=== PATIENT | female | born 1980 | race Caucasian/White ===

== ENCOUNTER 2021-04-30 18:50 | Inpatient (IN) ==
[2021-04-30] MEDS ORDERED: LABETALOL HCL IV 5 MG/ML 20ML IV STA ×3 (19:14→21:54)
--- NOTE | 2021-04-30 19:19 | Emergency Department Note ---
Impression & Plan Hypertensive urgency, Right-sided headache, Elevated troponin, Uncontrolled hypertension ED Provider Note NAME: ERIS PENDLETON AGE: 41 SEX: F : 1980 ARRIVES VIA: Walk-In INFORMANT: [Patient] ED PROVIDER(S): [Santiago Cheung MD] CHIEF COMPLAINT: Headache HISTORY OF PRESENT ILLNESS: The patient is a 41-year-old female who states that she has no significant past medical history. She has not been to her doctor in years. The patient states that for 5 days, she has had a right-sided headache and a headache behind her right eye. The pain has escalated in the last 12 to 24 hours and is now an 8/10. She has tried ibuprofen with minimal relief. No visual issues, no one- sided weakness. No fever, chills, cough or congestion. No vomiting. She has not suffered trauma. Patient states that her right posterior neck feels a bit stiff but mostly, she just has the right-sided headache. REVIEW OF SYSTEMS: See HPI for pertinent positives and negatives. A total of ten systems were reviewed and were otherwise negative. PMHx/PSHx: See Below SOCIAL HISTORY: See Below. PHYSICAL EXAM: GENERAL: Patient is in no acute distress. HEENT: No acute trauma, normocephalic atraumatic, mucous membranes moist, no nasal congestion, no scleral icterus. NECK: No stridor, no adenopathy, no meningismus, trachea is midline. Posterior neck muscles are a bit sore to palpate especially where they insert onto the scalp. LUNGS: Clear to auscultation bilaterally, no wheeze, no rhonchi, breath sounds equal. HEART: Mildly tachycardic, regular rhythm, subtle systolic murmur. ABDOMEN: Soft, nontender, bowel sounds positive, no hernias, no peritonitis. EXTREMITIES: No cyanosis or edema, full range of motion of all the joints without pain or difficulty, no signs for acute trauma. NEUROLOGIC: Oriented x 3, no acute motor or sensory deficits, no focal weakness. SKIN: No rash, no jaundice, no diaphoresis. DIFFERENTIAL DIAGNOSIS: Hypertensive urgency/emergency, intracranial bleeding, carotid dissection, aneurysm, renal failure, electrolyte imbalance, UTI, meningitis, sinusitis, intracranial mass, among others. EMERGENCY DEPARTMENT COURSE/PROCEDURES: ECG: Indication was tachycardia. The ECG shows a sinus tachycardia with PACs. The rate is 101. There is no ST elevation, no PVCs. The QTc is 482. Continuous Cardiac Monitoring: An order was placed for continuous cardiac monitoring. The monitor shows a rate of 789 with normal sinus rhythm. Critical Care Note: I have personally spent 52 minutes of critical care time in the direct management of this patient. This includes bedside care, interpretation of diagnostic studies, and testing, discussion with consultants, patient, and family members, and other required patient management activities. This 52 minutes is in excess of all separately billable procedures. MEDICAL DECISION MAKING: There is no leukocytosis or concerning anemia. There is a normal platelet count. Potassium is a bit low but not in need of emergent correction. No renal failure. No concerning liver enzyme elevation. The patient appeared to be in a euthyroid state. testing returned negative. ECG shows a sinus tachycardia with PACs, no obvious ST elevation. Cardiac enzyme testing x1 is slightly elevated concerning for cardiac injury or strain. Urinalysis did not show infection. Covid testing returned negative. Chest x-ray did not show mediastinal widening, pneumonia or pneumothorax. Brain CT and CT angio of the head and neck are pending. On exam, there was no meningismus, the patient did not have any focal neurologic findings. She was mentating well. No fever. Patient presents with a headache. Her blood pressure was quite high and actually in the danger level. She was aggressively managed. The patient was given IV labetalol, 3 doses were given IV. She was given oral lisinopril. The patient's blood pressure is better than when she first arrived. She seems to be resting comfortably. I suspect the patient's complaints are secondary to her very high blood pressure. She is going to be admitted to the hospital for further work-up and for continued blood pressure control. I spoke with the patient and case management. The on-call hospitalist was consulted. Past Med/Surg History Medical History Odontalgia Social History Smoking Status: Never smoker Feels Safe at Home: Yes Allergies Allergies Allergy/AdvReac Type Severity Reaction Status Date / Time Sulfa (Sulfonamide Allergy Severe RASH Verified 04/30/21 20:50 Antibiotics) Home Meds Home Medications Medication Instructions Recorded Confirmed ibuprofen 200 mg tablet 800 mg PO Q6H PRN 04/30/21 04/30/21 Results & Data (ED) Vital Signs Vital Signs - 24 hr 04/30/21 18:51 04/30/21 18:53 04/30/21 19:14 Temperature 36.8 C Temperature Source Oral Pulse Rate 119 H 78 Pulse Rate [Left Radial] 101 H Pulse Rhythm Regular Pulse Rhythm [Left Radial] Regular Respiratory Rate 20 20 20 Respiratory Effort / Characteristics Non-Labored Non-Labored Spontaneous Respiratory Depth Normal Normal Respiratory Pattern Regular Blood Pressure 242/132 H Blood Pressure [Left Arm] 203/136 H Blood Pressure Mean 168 Blood Pressure Mean [Left Arm] 158 Blood Pressure Position [Left Arm] Lying Pulse Oximetry 98 99 97 Oxygen Delivery Method Room Air Room Air Room Air Sepsis Recent Fever Within 48 Hours No Sepsis New/Unexplained Change in Mental Status No Sepsis Action Taken by Nursing No Action Required 04/30/21 20:51 04/30/21 22:00 Temperature Temperature Source Pulse Rate Pulse Rate [Left Radial] 83 78 Pulse Rhythm Pulse Rhythm [Left Radial] Regular Regular Respiratory Rate 20 90 H Respiratory Effort / Characteristics Non-Labored Non-Labored Respiratory Depth Normal Normal Respiratory Pattern Blood Pressure Blood Pressure [Left Arm] 208/113 H 205/105 H Blood Pressure Mean Blood Pressure Mean [Left Arm] 144 138 Blood Pressure Position [Left Arm] Lying Lying Pulse Oximetry 98 99 Oxygen Delivery Method Room Air Room Air Sepsis Recent Fever Within 48 Hours Sepsis New/Unexplained Change in Mental Status Sepsis Action Taken by Usp Medications Current Medication List: was personally reviewed by me Laboratory Data Attestation: I reviewed the patient's lab results. Result diagrams: 04/30/21 19:40 04/30/21 19:40 Lab Results 04/30/21 04/30/21 04/30/21 Range/Units 19:33 19:40 19:40 WBC 9.87 (4.8-10.8) K/uL RBC 4.94 (4.2-5.4) M/uL Hgb 13.6 (12.0-16.0) g/dL Hct 41.3 (37-47) % MCV 83.6 (80-100) fL MCH 27.5 (25-34) pg MCHC 32.9 (32-36) g/dL RDW Std Deviation 43.3 (36.4-46.3) fL RDW Coeff of Moraima 14.2 (11.5-14.5) % Plt Count 326 (130-400) K/uL MPV 9.8 (7.4-10.4) fL Immature Gran % (Auto) 0.1 % Neut % (Auto) 69.8 % Lymph % (Auto) 22.9 % [place] % (Auto) 6.5 % Eos % (Auto) 0.5 % Baso % (Auto) 0.2 % Neut # (Auto) 6.89 H (1.4-6.5) K/uL Lymph # (Auto) 2.26 (1.2-3.4) K/uL [place] # (Auto) 0.64 H (0.11-0.59) K/uL Eos # (Auto) 0.05 (0-0.5) K/uL Baso # (Auto) 0.02 (0-0.2) K/uL Immature Gran # (Auto) 0.01 (0.00-0.02) K/uL Sodium 140 (136-145) mmol/L Potassium 3.2 L (3.5-5.1) mmol/L Chloride 104 (98-107) mmol/L Carbon Dioxide 28 (21-32) mmol/L Anion Gap 8 (3-11) BUN 9 (6-23) mg/dl Creatinine 0.76 (0.6-1.2) mg/dl Est Cr Clr Drug Dosing 97.3 ml/min Est GFR ( Amer) 112.1 ml/min Est GFR (Non-Af Amer) 96.8 ml/min BUN/Creatinine Ratio 11.8 (10-20) Glucose 111 H (70-99(Fasting)) mg/dl Calcium 9.4 (8.5-10.1) mg/dl Magnesium 2.1 (1.7-2.4) mg/dl Total Bilirubin 0.4 (0.2-1.0) mg/dl AST 15 (13-39) U/L ALT 16 (7-52) U/L Alkaline Phosphatase 88 (34-104) U/L Troponin I 0.09 H* (0-0.04) ng/ml Total Protein 7.3 (6.0-8.3) gm/dl Albumin 4.4 (3.4-5.0) gm/dl Globulin 2.9 (2.5-4.0) gm/dl Albumin/Globulin Ratio 1.5 (0.9-2) TSH (0.300-4.500) uIu/ml HCG, Qual (Negative) Urine Color Urine Appearance (Clear) Urine pH (4.5-7.5) Ur Specific [place] (1.000-1.030) Urine Protein (Negative) Urine Glucose (UA) (Negative) Urine Ketones (Negative) Urine Blood (Negative) Urine Nitrite (Negative) Urine Bilirubin (Negative) Urine Urobilinogen (Negative) Ur Leukocyte Esterase (Negative) SARS-CoV-2, RNA, NAAT NEGATIVE (NEGATIVE) 04/30/21 04/30/21 04/30/21 Range/Units 19:40 19:40 19:40 WBC (4.8-10.8) K/uL RBC (4.2-5.4) M/uL Hgb (12.0-16.0) g/dL Hct (37-47) % MCV (80-100) fL MCH (25-34) pg MCHC (32-36) g/dL RDW Std Deviation (36.4-46.3) fL RDW Coeff of Moraima (11.5-14.5) % Plt Count (130-400) K/uL MPV (7.4-10.4) fL Immature Gran % (Auto) % Neut % (Auto) % Lymph % (Auto) % [place] % (Auto) % Eos % (Auto) % Baso % (Auto) % Neut # (Auto) (1.4-6.5) K/uL Lymph # (Auto) (1.2-3.4) K/uL [place] # (Auto) (0.11-0.59) K/uL Eos # (Auto) (0-0.5) K/uL Baso # (Auto) (0-0.2) K/uL Immature Gran # (Auto) (0.00-0.02) K/uL Sodium (136-145) mmol/L Potassium (3.5-5.1) mmol/L Chloride (98-107) mmol/L Carbon Dioxide (21-32) mmol/L Anion Gap (3-11) BUN (6-23) mg/dl Creatinine (0.6-1.2) mg/dl Est Cr Clr Drug Dosing ml/min Est GFR ( Amer) ml/min Est GFR (Non-Af Amer) ml/min BUN/Creatinine Ratio (10-20) Glucose (70-99(Fasting)) mg/dl Calcium (8.5-10.1) mg/dl Magnesium (1.7-2.4) mg/dl Total Bilirubin (0.2-1.0) mg/dl AST (13-39) U/L ALT (7-52) U/L Alkaline Phosphatase (34-104) U/L Troponin I (0-0.04) ng/ml Total Protein (6.0-8.3) gm/dl Albumin (3.4-5.0) gm/dl Globulin (2.5-4.0) gm/dl Albumin/Globulin Ratio (0.9-2) TSH 1.398 (0.300-4.500) uIu/ml HCG, Qual Negative (Negative) Urine Color Yellow Urine Appearance Clear (Clear) Urine pH 6.5 (4.5-7.5) Ur Specific [place] 1.012 (1.000-1.030) Urine Protein Negative (Negative) Urine Glucose (UA) Negative (Negative) Urine Ketones Negative (Negative) Urine Blood Negative (Negative) Urine Nitrite Negative (Negative) Urine Bilirubin Negative (Negative) Urine Urobilinogen Negative (Negative) Ur Leukocyte Esterase Negative (Negative) SARS-CoV-2, RNA, NAAT (NEGATIVE) Administered Medications Discontinued Medications Ioversol (Optiray 320 125ml) 120 ml IV ONCE ONE Stop: 04/30/21 20:37 Last Admin: 04/30/21 20:39 Dose: 120 ml Documented by: [id number] Labetalol HCl (Labetalol Hcl Iv 5 Mg/Ml 20ml) 10 mg IV NOW STA Stop: 04/30/21 19:15 Last Admin: 04/30/21 19:37 Dose: 10 mg Documented by: [id number] Cosigned by: [id number] Labetalol HCl (Labetalol Hcl Iv 5 Mg/Ml 20ml) 10 mg IV NOW STA Stop: 04/30/21 20:23 Last Admin: 04/30/21 20:26 Dose: 10 mg Documented by: [id number] Cosigned by: [id number] Labetalol HCl (Labetalol Hcl Iv 5 Mg/Ml 20ml) 10 mg IV NOW STA Stop: 04/30/21 21:55 Last Admin: 04/30/21 22:02 Dose: 10 mg Documented by: [id number] Cosigned by: [id number] Lisinopril (Lisinopril 5 Mg Tab) 10 mg PO NOW ONE Stop: 04/30/21 21:18 Last Admin: 04/30/21 21:52 Dose: 10 mg Documented by: [id number] Imaging Data Radiologist's Impression: Chest X-Ray 04/30/21 19:14 XR chest 1V portable CLINICAL HISTORY: weakness. Evaluate cardiopulmonary status COMPARISON STUDY: 12/09/2010 TECHNIQUE: 1 view of the chest FINDINGS: Single frontal view of the chest demonstrates the cardiomediastinal silhouette to be within normal limits. The lungs are clear of alveolar opacities. There is no evidence for pleural effusion. There is no evidence for vascular congestion. There is no acute osseous pathology. IMPRESSION: 1. No acute cardiopulmonary disease. ACT 112: Negative or not required by law. Electronically signed by: Hipolito Fatima M.D. 04/30/2021 7:[address], CT angio of the brain and neck: Pending. Discharge Plan Visit Data Chief Complaint: Headache Stated Complaint: headache 5 days, stiff neck, lightheaded, ED Provider: Santiago Cheung Discharge Problem: Hypertensive urgency, Right-sided headache, Elevated troponin, Uncontrolled hypertension Patient Disposition: Admitted As Inpatient Condition: Fair Forms Stand Alone Forms: My [facility] Prescriptions Prescriptions: No Action ibuprofen 200 mg Tablet 800 mg PO Q6H PRN (Reason: Pain) RF: 0 Referrals Referrals: Jarad Butcher MD [Outside Practitioners] -
[2021-04-30 19:48] LABS: Basophils # (auto) 0.02 K/uL (0-0.2); Basophils % (auto) 0.2 %; Eosinophils # (auto) 0.05 K/uL (0-0.5); Eosinophils % (auto) 0.5 %; Hematocrit (blood only) 41.3 % (37-47); Hemoglobin 13.6 g/dL (12.0-16.0); Immature Granulocytes # (auto) 0.01 K/uL (0.00-0.02); Immature Granulocytes % (auto) 0.1 %; Lymphocytes # (auto) 2.26 K/uL (1.2-3.4); Lymphocytes % (auto) 22.9 %; Mean Corpuscular Hemoglobin 27.5 pg (25-34); Mean Corpuscular Hgb Conc 32.9 g/dL (32-36); Mean Corpuscular Volume 83.6 fL (80-100); Mean Platelet Volume 9.8 fL (7.4-10.4); Monocytes # (auto) 0.64 K/uL (0.11-0.59); Monocytes % (auto) 6.5 %; Neutrophils # (auto) 6.89 K/uL (1.4-6.5); Neutrophils % (auto) 69.8 %; Platelet Count 326 K/uL (130-400); RDW Coefficient of Variation 14.2 % (11.5-14.5); RDW Standard Deviation 43.3 fL (36.4-46.3); Red Blood Count 4.94 M/uL (4.2-5.4); White Blood Count 9.87 K/uL (4.8-10.8)
[2021-04-30 19:50] LABS: Appearance Urine Clear (Clear); Bilirubin Urine Negative (Negative); Blood Urine Negative (Negative); Color Urine Yellow; Glucose Urine UA Negative (Negative); Ketones Urine Negative (Negative); Leukocyte Esterase Urine Negative (Negative); Nitrite Urine Negative (Negative); Protein Urine Negative (Negative); Specific Gravity Urine 1.012 (1.000-1.030); Urobilinogen Urine Negative (Negative); pH Urine 6.5 (4.5-7.5)
--- NOTE | 2021-04-30 20:01 | XRay Report ---
XR chest 1V portable CLINICAL HISTORY: weakness. Evaluate cardiopulmonary status COMPARISON STUDY: 12/09/2010 TECHNIQUE: 1 view of the chest FINDINGS: Single frontal view of the chest demonstrates the cardiomediastinal silhouette to be within normal li mits. The lungs are clear of alveolar opacities. There is no evidence for pleural effusion. There is no evidence for vascular congestion. There is no acute osseous pathology. IMPRESSION: 1. No acute cardiopulmonary disease. ACT 112: Negative or not required by law. Electronically signed by: Hipolito Fatima M.D. 04/30/2021 7:58 PM
[2021-04-30 20:16] LABS: Albumin Globulin Ratio 1.5 (0.9-2); Albumin Level 4.4 gm/dl (3.4-5.0); BUN Creatinine Ratio 11.8 (10-20); Bilirubin,Total 0.4 mg/dl (0.2-1.0); Calcium 9.4 mg/dl (8.5-10.1); Creatinine Clr Calc Pharmacy 97.3 ml/min; Est GFR (African American) 112.1 ml/min; Est GFR (Non-African American) 96.8 ml/min; Globulin 2.9 gm/dl (2.5-4.0); Magnesium 2.1 mg/dl (1.7-2.4); Potassium 3.2 mmol/L (3.5-5.1); Total Protein 7.3 gm/dl (6.0-8.3)
[2021-04-30 20:17] LABS: Pregnancy Test, Serum Negative (Negative)
[2021-04-30 20:20] LABS: Troponin I 0.09 ng/ml (0-0.04)
[2021-04-30] MEDS ORDERED: OPTIRAY 320 125ml IV ONE (20:36)
[2021-04-30] MEDS ORDERED: lisinopril 5 MG TAB PO ONE (21:17)
[2021-04-30] MEDS ORDERED: POTASSIUM CHLORIDE CRTAB 20 MEQ TABCR PO STA (23:01)
--- NOTE | 2021-04-30 23:05 | History & Physical Report ---
Date of Service April 30, 2021 Assessment & Plan (1) Hypertensive crisis: Plan: History of gestational hypertension Troponin elevation secondary to above Hyperglycemia rule out DM Hypokalemia Ongoing tobacco abuse PCU Careful lowering of blood pressure Titrate lisinopril Follow troponin TTE if with further elevation Consider cardiology consult for hypertensive crisis if BP unresponsive Replace potassium Check hemoglobin A1c Nicotine patch as needed DVT prophylaxis per Lovenox subcu Full code Text document was generated using [employer] voice recognition software. It may contain grammatical or spelling errors. Kindly contact undersigned for clarification of any documentation item in question. History of Present Illness Chief Complaint: Headache, high blood pressure Primary Care Provider: NO PCP (Patient previously known as Joid Dillon.) Medical history significant for gestational hypertension, ongoing tobacco abuse 4 days history of achy right-sided headache symptoms without visual abnormalities. Pain more constant the last 2 days. Patient took her blood pressure at home yesterday. SBP noted to be 180s. Patient denies chest pain, S OB. No unusual stress at home. Intermittent relief of headache symptoms with ibuprofen intake. Family advised patient to come to the hospital to get checked out. Highest BP at the ER 242/1 30s. Patient given doses of IV labetalol and lisinopril. SBP currently 200s. 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, no EtOH intake, homemaker Allergies Allergy/AdvReac Type Severity Reaction Status Date / Time Sulfa (Sulfonamide Allergy Severe RASH Verified 04/30/21 20:50 Antibiotics) Home Medications Medication Instructions Recorded Confirmed Type ibuprofen 200 mg tablet 800 mg PO Q6H PRN 04/30/21 04/30/21 History Past Med/Surg History Medical History Odontalgia Social History Smoking Status: Current every day smoker Do You Dip or Chew Tobacco: No; Hx Alcohol Use: No Hx Substance Use: No Preferred Language: [place] Islander Communication Ability: Effective Restaurant Cashier Required: No Beliefs That Will Affect Care: None Current Living Situation: Spouse Other Information That Helps Us Care for You: No Feels Safe at Home: Yes Safety Concerns: Feels Safe At This Time Assistive Devices: None Review of Systems Review of Systems: As per HPI, all 10 systems reviewed, all other ROS negative Physical Exam Physical Exam: GENERAL: Comfortable, pleasant, no respiratory distress SKIN: Normal color, warm HEENT: [place] palpebral conjunctivae, no ptosis, moist buccal mucosa NECK : Supple, no tenderness CHEST : CTA, no tenderness HEART : RRR, no obvious murmurs ABDOMEN: Some distention, nontender EXTREMITIES : No LE swelling/tenderness, no other conspicuous deformities noted NEUROLOGIC : Coherent, no facial asymmetry, no other gross focality Results & Data Results & Data ([facility]) Vital Signs (Past 12 Hours) Vital Signs Temp Pulse Pulse Resp BP BP Pulse Ox 04/30/21 22:00 78 90 H 205/105 H 99 04/30/21 20:51 83 20 208/113 H 98 04/30/21 19:14 78 20 97 04/30/21 18:53 36.8 C 119 H 20 242/132 H 99 04/30/21 18:51 101 H 20 203/136 H 98 Laboratory Results Laboratory Results WBC 9.87 K/uL (4.8-10.8) 04/30/21 19:40 RBC 4.94 M/uL (4.2-5.4) 04/30/21 19:40 Hgb 13.6 g/dL (12.0-16.0) 04/30/21 19:40 Hct 41.3 % (37-47) 04/30/21 19:40 MCV 83.6 fL (80-100) 04/30/21 19:40 MCH 27.5 pg (25-34) 04/30/21 19:40 MCHC 32.9 g/dL (32-36) 04/30/21 19:40 RDW Std Deviation 43.3 fL (36.4-46.3) 04/30/21 19:40 RDW Coeff of Moraima 14.2 % (11.5-14.5) 04/30/21 19:40 Plt Count 326 K/uL (130-400) 04/30/21 19:40 MPV 9.8 fL (7.4-10.4) 04/30/21 19:40 Immature Gran % (Auto) 0.1 % 04/30/21 19:40 Neut % (Auto) 69.8 % 04/30/21 19:40 Lymph % (Auto) 22.9 % 04/30/21 19:40 [place] % (Auto) 6.5 % 04/30/21 19:40 Eos % (Auto) 0.5 % 04/30/21 19:40 Baso % (Auto) 0.2 % 04/30/21 19:40 Neut # (Auto) 6.89 K/uL (1.4-6.5) H 04/30/21 19:40 Lymph # (Auto) 2.26 K/uL (1.2-3.4) 04/30/21 19:40 [place] # (Auto) 0.64 K/uL (0.11-0.59) H 04/30/21 19:40 Eos # (Auto) 0.05 K/uL (0-0.5) 04/30/21 19:40 Baso # (Auto) 0.02 K/uL (0-0.2) 04/30/21 19:40 Immature Gran # (Auto) 0.01 K/uL (0.00-0.02) 04/30/21 19:40 Sodium 140 mmol/L (136-145) 04/30/21 19:40 Potassium 3.2 mmol/L (3.5-5.1) L 04/30/21 19:40 Chloride 104 mmol/L (98-107) 04/30/21 19:40 Carbon Dioxide 28 mmol/L (21-32) 04/30/21 19:40 Anion Gap 8 (3-11) 04/30/21 19:40 BUN 9 mg/dl (6-23) 04/30/21 19:40 Creatinine 0.76 mg/dl (0.6-1.2) 04/30/21 19:40 Est Cr Clr Drug Dosing 97.3 ml/min 04/30/21 19:40 Est GFR ( Amer) 112.1 ml/min 04/30/21 19:40 Est GFR (Non-Af Amer) 96.8 ml/min 04/30/21 19:40 BUN/Creatinine Ratio 11.8 (10-20) 04/30/21 19:40 Glucose 111 mg/dl (70-99(Fasting)) H 04/30/21 19:40 Calcium 9.4 mg/dl (8.5-10.1) 04/30/21 19:40 Magnesium 2.1 mg/dl (1.7-2.4) 04/30/21 19:40 Total Bilirubin 0.4 mg/dl (0.2-1.0) 04/30/21 19:40 AST 15 U/L (13-39) 04/30/21 19:40 ALT 16 U/L (7-52) 04/30/21 19:40 Alkaline Phosphatase 88 U/L (34-104) 04/30/21 19:40 Troponin I 0.09 ng/ml (0-0.04) H* 04/30/21 19:40 Total Protein 7.3 gm/dl (6.0-8.3) 04/30/21 19:40 Albumin 4.4 gm/dl (3.4-5.0) 04/30/21 19:40 Globulin 2.9 gm/dl (2.5-4.0) 04/30/21 19:40 Albumin/Globulin Ratio 1.5 (0.9-2) 04/30/21 19:40 TSH 1.398 uIu/ml (0.300-4.500) 04/30/21 19:40 HCG, Qual Negative (Negative) 04/30/21 19:40 Urine Color Yellow 04/30/21 19:40 Urine Appearance Clear (Clear) 04/30/21 19:40 Urine pH 6.5 (4.5-7.5) 04/30/21 19:40 Ur Specific [place] 1.012 (1.000-1.030) 04/30/21 19:40 Urine Protein Negative (Negative) 04/30/21 19:40 Urine Glucose (UA) Negative (Negative) 04/30/21 19:40 Urine Ketones Negative (Negative) 04/30/21 19:40 Urine Blood Negative (Negative) 04/30/21 19:40 Urine Nitrite Negative (Negative) 04/30/21 19:40 Urine Bilirubin Negative (Negative) 04/30/21 19:40 Urine Urobilinogen Negative (Negative) 04/30/21 19:40 Ur Leukocyte Esterase Negative (Negative) 04/30/21 19:40 SARS-CoV-2, RNA, NAAT NEGATIVE (NEGATIVE) 04/30/21 19:33 Impressions Chest X-Ray 04/30/21 19:14 XR chest 1V portable CLINICAL HISTORY: weakness. Evaluate cardiopulmonary status COMPARISON STUDY: 12/09/2010 TECHNIQUE: 1 view of the chest FINDINGS: Single frontal view of the chest demonstrates the cardiomediastinal silhouette to be within normal limits. The lungs are clear of alveolar opacities. There is no evidence for pleural effusion. There is no evidence for vascular congestion. There is no acute osseous pathology. IMPRESSION: 1. No acute cardiopulmonary disease. ACT 112: Negative or not required by law. Electronically signed by: Hipolito Fatima M.D. 04/30/2021 7:[address] head initial read: No ICH, mass-effect, or edema. No skull fracture. Sinuses and mastoid air cells are clear. 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 Variant ACAanatomywith common ACAtrunk at the A2 level. Patent intracranial circulation. No large vessel occlusion. No aneurysm. No vascular malformation. CT angio neck initial read: No dissection, stenosis, or occlusion. EKG as per my interpretation: Rate 105, sinus tachycardia, normal axis, LAE, no ischemia
[2021-04-30] MEDS ORDERED: traMADol HCL 50 MG TABLET PO PRN (23:29)
[2021-04-30] MEDS ORDERED: traMADol HCL 50 MG TABLET PO STA (23:29)
[2021-05-01] MEDS ORDERED: LACTATED RINGER'S 1,000 ML IV ONE (00:32)
[2021-05-01] MEDS ORDERED: PROMETHAZINE HCL 12.5 MG in SODIUM CHLORIDE 0.9% 50 ML IV PRN (00:32)
[2021-05-01] MEDS ORDERED: traMADol HCL 50 MG TABLET PO PRN (00:32)
[2021-05-01] MEDS: MoRPHine SULFATE 2 MG/ML CARP IV PRN (00:46)
[2021-05-01 01:17] LABS: Partial Thromboplastin Ratio 0.9; Partial Thromboplastin Time 25.9 Seconds (21.0-31.0)
[2021-05-01] MEDS: ACETAMINOPHEN 325 MG TAB PO PRN ×3 (01:17→23:05)
[2021-05-01] MEDS ORDERED: lisinopril 10 MG TAB PO ONE (01:45)
[2021-05-01 05:45] LABS: Basophils # (auto) 0.01 K/uL (0-0.2); Basophils % (auto) 0.1 %; Eosinophils # (auto) 0.06 K/uL (0-0.5); Eosinophils % (auto) 0.7 %; Hematocrit (blood only) 37.6 % (37-47); Hemoglobin 12.6 g/dL (12.0-16.0); Immature Granulocytes # (auto) 0.01 K/uL (0.00-0.02); Immature Granulocytes % (auto) 0.1 %; Lymphocytes # (auto) 3.04 K/uL (1.2-3.4); Lymphocytes % (auto) 34.1 %; Mean Corpuscular Hemoglobin 28.1 pg (25-34); Mean Corpuscular Hgb Conc 33.5 g/dL (32-36); Mean Corpuscular Volume 83.7 fL (80-100); Mean Platelet Volume 9.6 fL (7.4-10.4); Monocytes # (auto) 0.76 K/uL (0.11-0.59); Monocytes % (auto) 8.5 %; Neutrophils # (auto) 5.03 K/uL (1.4-6.5); Neutrophils % (auto) 56.5 %; Platelet Count 310 K/uL (130-400); RDW Coefficient of Variation 14.4 % (11.5-14.5); RDW Standard Deviation 44.2 fL (36.4-46.3); Red Blood Count 4.49 M/uL (4.2-5.4); White Blood Count 8.91 K/uL (4.8-10.8)
[2021-05-01 06:29] LABS: BUN Creatinine Ratio 13.6 (10-20); Calcium 9.3 mg/dl (8.5-10.1); Creatinine Clr Calc Pharmacy 125.3 ml/min; Est GFR (Non-African American) 113.1 ml/min; Potassium 3.7 mmol/L (3.5-5.1)
--- NOTE | 2021-05-01 08:15 | CT Scan Report ---
CT angio head w con, CT angio neck with con, CT head/brain wo con CLINICAL HISTORY: headache on right, htn TECHNIQUE: Contiguous axial CT images of the head were acquired from the base of the skull to the denny chris without intravenous contrast administration. CT angiography of the head and neck was performed f ollowing intravenous administration of iodinated contrast. Coronal and sagittal MIPS were obtained fr om the axial data set and were submitted for review. Automated dose lowering techniques and/or adjus tment according to patient size were utilized for this examination. All measurements were calculated based on NASCET criteria. Comparison: Comparison is made to CT head 05/19/2012 FINDINGS: CT head: There is no acute intracranial hemorrhage or evidence of acute territorial infarction. No sh ift of the midline structures, mass effect, or extra-axial abnormalities are shown. Lungs and soft tissues are unremarkable. CTA Neck: A 3 vessel aortic arch is shown. There is no significant atherosclerotic plaque in the aor tic arch or the origins of the innominate, left common carotid, and left subclavian arteries. The c ommon carotid, external carotid, cervical segments of the internal carotid arteries, and the cervical segments of the vertebral arteries are patent without hemodynamically significant stenosis. The vert ebral arteries are codominant. CTA Head: The anterior and posterior cerebral circulations are patent. No hemodynamically significan t stenosis, aneurysm, dissection, or arteriovenous malformation is shown. origin of the left PC A seen. Incidental note is made of common A2 segment of the MARY ALICE. IMPRESSION: 1. No acute intracranial hemorrhage, evidence of acute territorial infarction, or other acute intrac ranial disease process. 2. No occlusion, hemodynamically significant stenosis, aneurysm, dissection, or arteriovenous malfor mation in the major intracranial arteries. 3. No occlusion, hemodynamically significant stenosis, or dissection in the major cervical arteries. Assessment of stenosis of the internal carotid arteries is based on NASCET criteria. ACT 112: Negative or not required by law. Electronically signed by: Humberto Felder M.D. 05/01/2021 8:14 AM
[2021-05-01] MEDS: ENOXAPARIN INJ 40 MG/0.4 ML SYR SQ SCH (09:05)
--- NOTE | 2021-05-01 10:45 | Electrocardiogram Report ---
Test Reason : Blood Pressure : / mmHG Vent. Rate : 101 BPM Atrial Rate : 101 BPM P-R Int : 156 ms QRS Dur : 092 ms QT Int : 372 ms P-R-T Axes : 065 069 055 degrees QTc Int : 482 ms Sinus tachycardia with Premature atrial complexes Left atrial enlargement Borderline ECG When compared with ECG of 09-DEC-2010 12:51, Premature atrial complexes are now Present Confirmed by Kostas Matthew ([id number]) on 05/01/2021 10:44:41 AM Referred By: REFERRED SELF Confirmed By:Kostas Matthew
[2021-05-01] MEDS ORDERED: amLODIPine BESYLATE 5 MG TAB PO SCH (15:30)
--- NOTE | 2021-05-01 15:50 | Hospitalist Progress Note ---
Date of Service May 01, 2021 Assessment & Plan (1) Hypertensive crisis: Plan: History of gestational hypertension during her 1 pregancy Present on admission with headache and elevated BP 242/132 Received Multiple doses of Labetalol 10mg x3 on admission Lisinopril 20mg was started on admission Most recent BP 173/106 Will add amlodipine 5mg Pt is very anxious to go home tonight Continue monitor BP Elevated troponin Demand ischemia due to Hypertensive crisis Troponin 0.09x3 Denies any chest pain EKG showed no ischemic changes ECHO showed no LV wall motion abnormality. EF 60-65 % Headache Due to hypertensive crisis CT head showed no acute intracranial abnormality CTA head and neck showed no acute intracranial hemorrhage, evidence of acute territorial infarction, or other acute intracranial disease process. No occlusion, hemodynamically significant stenosis, aneurysm, dissection, or arteriovenous malformation in the major intracranial arteries. Clinically improved Hypokalemia Potassium 3.2 admission, K 3.7 today K replaced Continue monitor BMP Elevate glucose Glucose 111 on admisison Hba1c pending Continue monitor Tobacco abuse Counseling on tobacco cessation Consider nicotine patch pen DVT prophylaxis per Lovenox subcu Code status Full code Admission and Anticipated Discharge Date Admission Date: April 30, 2021 Subjective Pt was seen and examined for follow up of elevated BP Lying in bed with no acute distress Pt said that her headache improved, it is very mild now She would like to go home tonight because her is working tomorrow and she does not have anyone to watch the kids Denies any chest pain, palpitation, dizziness and SOB Review of Systems Review of Systems: All systems reviewed & are unremarkable except as noted in Subjective Physical Exam Physical Exam: General- No acute distress Head- atraumatic Eyes- PERRL, EOMI, ENT- oropharynx clear Neck- supple, no JVD Lungs- clear to auscultation Heart- regular rhythm; no murmur Abdomen- normal bowel sounds, soft, nontender Extremities- no calf tenderness Neuro- alert, oriented x 3; PERRL, EOMI; no facial palsy; no dysarthria Skin- warm & dry Results & Data Results & Data ([facility]) Vital Signs (Past 12 Hours) Vital Signs Temp Pulse Resp BP Pulse Ox 05/01/21 15:19 36.7 C 91 H 19 173/106 H 98 05/01/21 11:19 37.0 C 95 H 20 152/83 H 96 05/01/21 07:08 37.1 C 85 20 175/104 H 96 05/01/21 03:52 37.0 C 94 H 18 168/104 H 96
[2021-05-01] MEDS ORDERED: NICOTINE POLACRILEX 2 MG GUM MT PRN (18:42)
[2021-05-01] MEDS: lisinopril 20 MG TAB PO SCH (20:52)
[2021-05-01] MEDS ORDERED: lisinopril 10 MG TAB PO SCH (21:00)
[2021-05-02] MEDS ORDERED: cloNIDine HCL 0.1 MG TAB PO ONE (03:34)
[2021-05-02] MEDS: MoRPHine SULFATE 2 MG/ML CARP IV PRN (03:42)
[2021-05-02] MEDS: amLODIPine BESYLATE 5 MG TAB PO SCH ×2 (05:39→21:55)
[2021-05-02 07:23] LABS: Estimated Average Glucose 114 mg/dl; Hemoglobin A1C 5.6 % (4.5-5.6)
[2021-05-02] MEDS: ENOXAPARIN INJ 40 MG/0.4 ML SYR SQ SCH (08:54)
[2021-05-02] MEDS ORDERED: hydroCHLOROthiazide 25 MG TAB PO STA (12:33)
[2021-05-02] MEDS ORDERED: LABETALOL HCL IV 5 MG/ML 20ML IV STA (16:31)
--- NOTE | 2021-05-02 18:19 | Hospitalist Progress Note ---
Date of Service May 02, 2021 Assessment & Plan (1) Hypertensive crisis: Plan: History of gestational hypertension during her 2 pregancy Present on admission with headache and elevated BP 242/132 Received Multiple doses of Labetalol 10mg x3 on admission Lisinopril 20mg was started on admission Most recent BP 173/106 Continue Amlodipine/Lisinopril Will add HCTZ 25mg daily Pt is very anxious to go home. The longer i keep him to the hospital, the worst her BP get Continue monitor BP Check BMP in am Consider cardiology consult to help with BP management Elevated troponin Demand ischemia due to Hypertensive crisis Troponin 0.09x3 Denies any chest pain EKG showed no ischemic changes ECHO showed no LV wall motion abnormality. EF 60-65 % Headache Due to hypertensive crisis CT head showed no acute intracranial abnormality CTA head and neck showed no acute intracranial hemorrhage, evidence of acute territorial infarction, or other acute intracranial disease process. No occlusion, hemodynamically significant stenosis, aneurysm, dissection, or arteriovenous malformation in the major intracranial arteries. Clinically improved Hypokalemia Potassium 3.2 admission, K 3.7 today K replaced Continue monitor BMP Elevate glucose Glucose 111 on admission Hba1c 5.6 Continue monitor Tobacco abuse Counseling on tobacco cessation Consider nicotine patch DVT prophylaxis per Lovenox subcu Code status Full code Admission and Anticipated Discharge Date Admission Date: April 30, 2021 Subjective Pt was seen and examined for follow up of elevated BP Lying in bed with no acute distress with your Pt said that she did not sleep last night because she was awake thinking about going home She continues to have alot of anxiety She felt the more she stays in the hospital that caused her BP to get higher Denies any chest pain, palpitation, dizziness and SOB Review of Systems Review of Systems: All systems reviewed & are unremarkable except as noted in Subjective Physical Exam Physical Exam: General- No acute distress Head- atraumatic Eyes- PERRL, EOMI, ENT- oropharynx clear Neck- supple, no JVD Lungs- clear to auscultation Heart- regular rhythm; no murmur Abdomen- normal bowel sounds, soft, nontender Extremities- no calf tenderness Neuro- alert, oriented x 3; PERRL, EOMI; no facial palsy; no dysarthria Skin- warm & dry Results & Data Results & Data ([facility]) Vital Signs (Past 12 Hours) Vital Signs Temp Pulse Resp BP Pulse Ox 05/02/21 15:38 36.7 C 110 H 15 174/121 H 96 05/02/21 11:28 36.6 C 99 H 15 185/110 H 99 05/02/21 07:38 36.8 C 86 16 168/108 H 96
[2021-05-02] MEDS: LORazepam 0.5 MG TAB PO PRN (21:59)
[2021-05-03] MEDS: lisinopril 20 MG TAB PO SCH (00:21)
[2021-05-03] MEDS: ENOXAPARIN INJ 40 MG/0.4 ML SYR SQ SCH (08:11)
[2021-05-03 08:33] LABS: BUN Creatinine Ratio 22.1 (10-20); Calcium 9.3 mg/dl (8.5-10.1); Est GFR (African American) 110.4 ml/min; Est GFR (Non-African American) 95.2 ml/min; Potassium 3.1 mmol/L (3.5-5.1)
[2021-05-03] MEDS ORDERED: hydroCHLOROthiazide 25 MG TAB PO SCH (09:00)
[2021-05-03] MEDS ORDERED: POTASSIUM CHLORIDE CRTAB 20 MEQ TABCR PO STA (10:55)
--- NOTE | 2021-05-03 11:00 | Nephrology Consultation ---
Date of Consultation May 03, 2021 Assessment & Plan (1) Hypertensive urgency: stage 2 /severe/ accelerated hypertension, hypertensive urgency in patient not on medications/ new diagnosis. w/ hx of gestational htn and tobacco abuse, she is at risk for htn. had low K on presentation but this is confounded by nsaid use at presentation. TTE and pt history document chronic HTN w/ evidence of end organ damage. -repleted K and started standing dose -needs renal u/s, prot/creat ratio urine and albumin to creatinine ratio; am blood tests to include for tomorrow plasma renin and jeannette AM concentrations, PTH; daily bmp -continue to avoid clonidine d/t side effect profile -continue current medications > except change hctz to chlorthalidone 25 mg daily starting in am and today pls increase lisinopril to 40 mg today; amlodipine will have slow onset - a few more days yet -use labetalol prn -defer to primary service needs strategy to manage MODI w/o nsaids -will need OP f/u in [facility] w/ PCP and w/ nephrology -pls have digital strategy specialist teach her on DASH diet - she already has some familiarity >>strongly advised her to plan to stop smoking completely -would need above tests and sbp consistently in 140-150s w/o issues before discharge >> reasonable to aim for this goal now History of Present Illness Reason for Consultation: HTN urgency Requesting Physician: DR Arteaga Attending Physician: Gardenia Arteaga MD History of Present Illness 41-year-old female whom I am asked to evaluate for hypertensive urgency was admitted for hypertensive crisis April 30. Past medical history includes active tobacco abuse. Also history of gestational hypertension approximately 2008, no preeclampsia. She tells me that she has never been diagnosed formally w/ HTN but does also state that her SBP runs 140s commonly at PCP visits when she did last have PCP a few years back. No FH of stroke or HTN dx'd < age 40 yrs old; no CKD/ESRD in family; + CAD. Both parents and her sister have HTN; sister dx'd age 46 yrs. 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 Her is diabetic so she eats what he does and already does low Na diet she states. No EtOH; willing to stop smoking. She has an upper arm home BP cuff not validated, does not check at home. Presented with headaches to ER in the setting of small amount of ibuprofen use. Presenting blood pressures were in the 200s systolic; noted to have potassium 3.2 on presentation. She was started on lisinopril and labetalol. Patient currently receiving 20 mg lisinopril at bedtime, 5 mg amlodipine a.m., hydrochlorothiazide 25 mg a.m. First dose of hydrochlorothiazide was yesterday. K went from normal to 3.1 today. states that "today is the first day I feel like myself;" no sob, no MODI, no n/v, no confusion, no ortostatic sx Note patient also in some EHR as Jodi Dillon - though no record of her under this name here or in [facility] EHR. Allergies Allergy/AdvReac Type Severity Reaction Status Date / Time Sulfa (Sulfonamide Allergy Severe RASH Verified 04/30/21 20:50 Antibiotics) Home Medications Medication Instructions Recorded Confirmed Type ibuprofen 200 mg tablet 800 mg PO Q6H PRN 04/30/21 04/30/21 History amlodipine 5 mg tablet (Norvasc) 5 mg PO QAM 30 Days #30 tab 05/02/21 Rx lisinopril 20 1 tab PO DAILY #30 tab 05/02/21 Rx mg-hydrochlorothiazide 12.5 mg tablet Patient History Medical History (Updated 05/03/21 @ 10:56 by Zoila Wilson MD, PhD) Hypertension Odontalgia Family History (Updated 05/03/21 @ 13:57 by Zoila Wilson MD, PhD) Other Heart disease Hypertension Denies family history of Kidney disease Social History Smoking Status: Current every day smoker Do You Dip or Chew Tobacco: No; Hx Alcohol Use: No Hx Substance Use: No Preferred Language: Kazakh Communication Ability: Effective Chief Architect Required: No Beliefs That Will Affect Care: None Current Living Situation: Spouse Other Information That Helps Us Care for You: No Feels Safe at Home: Yes Safety Concerns: Feels Safe At This Time Assistive Devices: None Review of Systems Review of Systems: All systems reviewed & are unremarkable except as noted in HPI & below Physical Exam Constitutional: well developed, well nourished, average body habitus and cooperative; no acute distress Eyes: EOM intact bilaterally ENMT: Ears: no external ear abnormality Nose: no external nose abnormality Mouth: + dry oral mucous membranes Neck: no nuchal rigidity Respiratory: normal respiratory effort Auscultation: + diminished lung sounds Cardiovascular: Rate/Rhythm: regular rhythm and + tachycardic Vessels: normal peripheral pulses (and symmetric); no carotid bruit and no renal bruit Extremities: no edema Gastrointestinal (Abdomen): Inspection/Auscultation: normal bowel sounds Percussion/Palpation: abdomen soft; abdomen nontender Musculoskeletal: Extremities: strength 5/5 throughout Skin: no rashes, warm and dry Neurologic: chang, fluent speech, no tremor Psychiatric: Orientation: oriented x 3 Results & Data ([facility]) Vital Signs (Past 12 Hours) Vital Signs Temp Pulse Pulse Resp BP Pulse Ox 05/03/21 09:06 175/105 H 05/03/21 08:00 88 05/03/21 07:42 37.0 C 112 H 18 165/112 H 95 05/03/21 04:06 36.8 C 110 H 18 180/98 H 96 Laboratory Results 05/01/21 05:32 05/03/21 08:02 TSH wnl Urine sediment bland Diagnostic Findings Chest x-ray: No acute cardiopulmonary issues CT angio head and neck: No acute intracranial bleeding, no acute territorial infarction, no intracranial acute disease. Major intracranial and cervical arteries without occlusion, hemodynamically significant stenosis, aneurysm, dissection, AVM Echocardiogram: Mild concentric LVH, ejection fraction 60 to 65%, normal LV systolic function and wall motion. No valvular pathology. Grade 1 diastolic dysfunction ECG admission: Sinus tachycardia with premature atrial complexes
[2021-05-03 20:38] LABS: Creatinine Urine Random 173.1 mg/dl; Protein Creatinine Ratio Urine 0.1 (0-0.2); Total Protein Urine Random 10.5 mg/dl (0-11.9)
[2021-05-03] MEDS ORDERED: lisinopril 40 MG TAB PO SCH (21:00)
--- NOTE | 2021-05-03 21:17 | Ultrasound Report ---
US renal/blad retro comp CLINICAL HISTORY: uncontrolled HTN. COMPARISON: None. TECHNIQUE: Multiple grayscale and color images of the kidneys and bladder. FINDINGS: Right kidney: The kidney is normal in size and echogenicity. There is no evidence for renal calculus or hydronephrosis. There is no evidence for solid renal mass. There is no evidence for medical renal disease. The kidney measures 10.1 x 4.5 x 4.7 cm. Left kidney: The kidney is normal in size and echogenicity. There is no evidence for renal calculus o r hydronephrosis. There is no evidence for solid renal mass. There is no evidence for medical renal d isease. The kidney measures 10.8 x 5.5 x 4.3 cm. Bladder: The bladder was nondistended. IMPRESSION: Negative renal ultrasound. ACT 112: Negative or not required by law. Electronically signed by: Hipolito Fatima M.D. 05/03/2021 9:16 PM
[2021-05-03] MEDS: POTASSIUM CHLORIDE CRTAB 20 MEQ TABCR PO SCH (22:21)
[2021-05-03] MEDS: LORazepam 0.5 MG TAB PO PRN (22:26)
--- NOTE | 2021-05-03 23:35 | Hospitalist Progress Note ---
Date of Service May 03, 2021 Assessment & Plan (1) Hypertensive crisis: Plan: History of gestational hypertension during her 2 pregancy Present on admission with headache and elevated BP 242/132 Received Multiple doses of Labetalol 10mg x3 on admission Pt is very anxious to go home. The longer i keep him to the hospital, the worst her BP get Nephrology consulted Case discussed with nephrology that recommended to change HCTZ to Chlorthalidone 25mg starts in am Lisinopril increased to 40mg and continue Amlodipine Renal U/S negative Check prot/creat ratio urine and albumin to creatinine ratio, plasma renin and aldosterone, PTH Continue monitor BP Continue monitor BMP Elevated troponin Demand ischemia due to Hypertensive crisis Troponin 0.09x3 Denies any chest pain EKG showed no ischemic changes ECHO showed no LV wall motion abnormality. EF 60-65 % Headache Due to hypertensive crisis CT head showed no acute intracranial abnormality CTA head and neck showed no acute intracranial hemorrhage, evidence of acute territorial infarction, or other acute intracranial disease process. No occlusion, hemodynamically significant stenosis, aneurysm, dissection, or arteriovenous malformation in the major intracranial arteries. Clinically improved Hypokalemia Potassium 3.2admission, K 3.1 today K replaced Continue monitor BMP Elevate glucose Glucose 111 on admission Hba1c 5.6 Continue monitor Tobacco abuse Counseling on tobacco cessation Consider nicotine patch DVT prophylaxis per Lovenox subcu Code status Full code Admission and Anticipated Discharge Date Admission Date: April 30, 2021 Subjective Pt was seen and examined for follow up of elevated BP Lying in bed with no acute distress Pt said that she was able to sleep for a few hours last night She is hoping to be discharged tomorrow Denies any chest pain, palpitation, dizziness and SOB Review of Systems Review of Systems: All systems reviewed & are unremarkable except as noted in Subjective Physical Exam Physical Exam: General- No acute distress Head- atraumatic Eyes- PERRL, EOMI, ENT- oropharynx clear Neck- supple, no JVD Lungs- clear to auscultation Heart- regular rhythm; no murmur Abdomen- normal bowel sounds, soft, nontender Extremities- no calf tenderness Neuro- alert, oriented x 3; PERRL, EOMI; no facial palsy; no dysarthria Skin- warm & dry Results & Data Results & Data ([facility]) Vital Signs (Past 12 Hours) Vital Signs Temp Pulse Pulse Resp BP Pulse Ox 05/03/21 19:13 36.9 C 101 H 18 177/113 H 97 05/03/21 16:08 37.3 C 95 H 19 160/88 H 96 05/03/21 14:17 80 05/03/21 11:36 37.2 C 97 H 18 160/108 H 96
[2021-05-04 06:56] LABS: BUN Creatinine Ratio 43.1 (10-20); Calcium 9.5 mg/dl (8.5-10.1); Creatinine Clr Calc Pharmacy 127.5 ml/min; Est GFR (African American) 131.8 ml/min; Est GFR (Non-African American) 113.7 ml/min; Potassium 3.4 mmol/L (3.5-5.1)
[2021-05-04] MEDS ORDERED: CHLORTHALIDONE 25 MG TAB PO SCH (09:00)
[2021-05-04] MEDS: ENOXAPARIN INJ 40 MG/0.4 ML SYR SQ SCH (09:33)
[2021-05-04] MEDS: amLODIPine BESYLATE 5 MG TAB PO SCH (09:33)
[2021-05-04] MEDS: LORazepam 0.5 MG TAB PO PRN (09:38)
[2021-05-04] MEDS: POTASSIUM CHLORIDE CRTAB 20 MEQ TABCR PO SCH (09:38)
--- NOTE | 2021-05-04 13:20 | Discharge Summary ---
Date of Service May 04, 2021 Admission HPI Per Admitting Provider (Patient previously known as Jodi Dillon.) Medical history significant for gestational hypertension, ongoing tobacco abuse 4 days history of achy right-sided headache symptoms without visual abnormalities. Pain more constant the last 2 days. Patient took her blood pressure at home yesterday. SBP noted to be 180s. Patient denies chest pain, S OB. No unusual stress at home. Intermittent relief of headache symptoms with ibuprofen intake. Family advised patient to come to the hospital to get checked out. Highest BP at the ER 242/1 30s. Patient given doses of IV labetalol and lisinopril. SBP currently 200s. 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, no EtOH intake, homemaker Discharge Data Allergies Allergy/AdvReac Type Severity Reaction Status Date / Time Sulfa (Sulfonamide Allergy Severe RASH Verified 04/30/21 20:50 Antibiotics) Consultations 04/30/21 22:40 ED Decision to Admit Stat 05/03/21 09:05 Consult Nephrology Routine Ordered Studies 04/30/21 19:14 CT angio head w con Urgent CT angio neck with con Urgent CT head/brain wo con Urgent 05/03/21 16:13 US renal/blad retro comp Routine Hospital Course (1) Hypertensive crisis: History of gestational hypertension during her 2 pregancy Present on admission with headache and elevated BP 242/132 Received Multiple doses of Labetalol 10mg x3 on admission Pt is very anxious to go home. The longer i keep him to the hospital, the worst her BP get Nephrology consulted Case discussed with nephrology that recommended to change HCTZ to Chlorthalidone 25mg starts in am Lisinopril increased to 40mg and continue Amlodipine Renal U/S negative Check prot/creat ratio urine and albumin to creatinine ratio, plasma renin and aldosterone, PTH Continue monitor BP Continue monitor BMP Elevated troponin Demand ischemia due to Hypertensive crisis Troponin 0.09x3 Denies any chest pain EKG showed no ischemic changes ECHO showed no LV wall motion abnormality. EF 60-65 % Headache Due to hypertensive crisis CT head showed no acute intracranial abnormality CTA head and neck showed no acute intracranial hemorrhage, evidence of acute territorial infarction, or other acute intracranial disease process. No occlusion, hemodynamically significant stenosis, aneurysm, dissection, or arteriovenous malformation in the major intracranial arteries. Clinically improved Hypokalemia Potassium 3.2admission, K 3.1 today K replaced Continue monitor BMP Elevate glucose Glucose 111 on admission Hba1c 5.6 Continue monitor Tobacco abuse Counseling on tobacco cessation Consider nicotine patch DVT prophylaxis per Lovenox subcu Code status Full code Discharge Plan Discharge Items Patient Disposition: Home - Self-Care Reason For Visit: HTN CRISIS Discharge Diagnosis: Hypertensive crisis: Elevated troponin Headache Hypokalemia Tobacco abuse Condition on Discharge: Good Activity: Resume your previous activity Non-emergency contact: Primary Care Provider Call non-emergency contact if: you have any medication questions Follow-up/Referrals: Tammie Ro PA-C [Outside Practitioners] - (Date & Time 05/05/2021 10:40 AM Provider Tammie Ro PA-C [address] [place] [address] ) Diet: Low Sodium (2gm) Addtl Attending Provider Instructions: Please Follow up with your primary care provider Elzbieta PAYTON on 05/05/2021 @ 10:40 AM @ [address] [place] [address]. You will also need to be seen by Dr. Lana Marie, [facility], who travels to [place] periodically. Please work with your primary care physician to get this set up. Continue monitor your blood pressure and bring your blood pressure log at your next appointment with your new provider Your heart rate was elevated in the hospital which may have been related to dehydration vs anxiety. However, if this persists beyond discharge, you may need an event monitor or further workup. Your provider will adjust your blood pressure medication Please stop smoking! This is terrible for your health! Please work with your doctor on smoking cessation methods. Check BMP in 2 weeks to monitor your electrolytes and renal function-this will be ordered by your primary care physician on follow-up. It was a pleasure taking care of you! Please call if you have any questions or problems. You can reach a [facility] hospitalist on duty at [facility] 24 hours a day by calling [phone]. Take care of yourself. Carolina Mauricio, [facility] Center[facility] Pending Studies at Discharge: No Stand-Alone Forms: [facility], Smoking Cessation Medications and DC Order Prescriptions: New amlodipine [Norvasc] 5 mg Tablet 5 mg PO QAM 30 Days Qty: 30 RF: 0 Continued ibuprofen 200 mg Tablet 800 mg PO Q6H PRN (Reason: Pain) RF: 0 Admission Data Admit Date/Time: 04/30/21 23:31 Attending Provider: Carolina Mauricio Admit Provider: Shaji Sandoval Primary Care Provider: PCP,NO Other Providers: Shaji Sandoval ; Zoila Wilson
--- NOTE | 2021-05-04 13:41 | Nephrology Progress Note ---
Date of Service May 04, 2021 Assessment & Plan (1) Hypertensive urgency: Plan: stage 2 /severe/ accelerated hypertension, hypertensive urgency in patient not on medications/ new diagnosis. w/ hx of gestational htn and tobacco abuse. had low K on presentation but this is confounded by nsaid use at presentation. TTE and pt history document chronic HTN w/ evidence of end organ damage. renal u/s wnl; no protienuria; PTH wnl. RECOMMEND -HOLTER if tachycardia persists as OP pe rPCP -hospital discharge w/ Dr Lana Marie in nephrology in [facility] has been requested> pls have hospital environmental planner follow up for visit within 2 wks of discharge -hospital environmental planner to coordinate weekly bmp x 3 wks to be ordered by nephrology nurse w/ Reese -needs to avoid nsaids > discuss w/ PCP ways to manage MODI or other pain without NSAIDS -Dr Marie to follow up pending plasma renin and aldosterone AM concentrations -recommend d/c on hctz 12.5 mg daily, potassium 20 mEq daily, and amlodipine 5 mg daily -would hold lisinopril at hospital discharge pending follow up -follow DASH diet at d/c >>strongly advised to stop smoking completely Care coordinated w/ Dr Mauricio. Admission and Anticipated Discharge Date Admission Date: April 30, 2021 Subjective seen on rounds 0900; denies orthostatic sx; endorses poor po intake michelet food. no pain; + anxiety michelet about d/c Review of Systems Review of Systems: All systems reviewed & are unremarkable except as noted in Subjective Physical Exam Constitutional: well developed, well nourished, average body habitus and co operative; no acute distress Eyes: EOM intact bilaterally ENMT: Ears: no external ear abnormality Nose: no external nose abnormality Mouth: + dry oral mucous membranes Neck: no nuchal rigidity Respiratory: normal respiratory effort Auscultation: + diminished lung sounds Cardiovascular: Rate/Rhythm: regular rhythm and + tachycardic Extremities: no edema Gastrointestinal (Abdomen): Inspection/Auscultation: normal bowel sounds Percussion/Palpation: abdomen soft; abdomen nontender Musculoskeletal: Extremities: strength 5/5 throughout Skin: no rashes, warm and dry Neurologic: no tremor, fluent speech, chang Psychiatric: Orientation: oriented x 3 Results & Data ([facility]) Vital Signs (Past 12 Hours) Vital Signs Temp Pulse Resp BP Pulse Ox 05/04/21 12:29 36.7 C 113 H 18 153/105 H 98 05/04/21 08:12 36.6 C 109 H 17 154/111 H 95 05/04/21 03:43 37.2 C 104 H 18 155/91 H 99 Laboratory Results 05/01/21 05:32 05/04/21 06:15
[2021-05-09 20:49] LABS: Renin Activity 2.12 ng/mL/h (0.25-5.82)
== END 2021-05-04 15:27 | disposition home or self-care (01) | DRG 305 ==
LOC: ED 18:50 → SUATTDRO 23:31 → 2S 23:31
DX: R73.9 Hyperglycemia, unspecified; Z88.2 Allergy status to sulfonamides; R51.9 Headache, unspecified; Z82.49 Family history of ischemic heart disease and other diseases of the circulatory system; I10 Essential (primary) hypertension; I16.9 Hypertensive crisis, unspecified; I24.8 Other forms of acute ischemic heart disease; E87.6 Hypokalemia; Z87.59 Personal history of other complications of pregnancy, childbirth and the puerperium